=== PATIENT | male | born 1945 | race Caucasian/White ===

== ENCOUNTER 2018-12-17 12:11 | Outpatient (CLI) | payer MEDICARE, OTHER ==
--- NOTE | 2018-12-18 08:38 | DEXA Report ---
Reason: TESTICULAR HYPOFUNCTION,LOCALIZED OSTEOPOROSIS [LE Procedure Date: 12/17/2018 Accession Number: [id number] / [id number] Procedure: DEX - Dexa Spine and/or Hip CPT Code: FULL RESULT: EXAM: Dexa Spine and/or Hip DATE: 12/17/2018 1:04 PM CLINICAL HISTORY: TESTICULAR HYPOFUNCTION,LOCALIZED OSTEOPOROSIS [LE TECHNIQUE: Dual energy x-ray absorptiometry (DXA) was performed on a [employer] System. Regions measured are the AP Spine, femoral neck, and if needed forearm. COMPARISON: None. In accordance with the International Society for Clinical Densitometry (ISCD) guidelines, data from previous exams may be reanalyzed using current recommendations and techniques. This is done to allow a more accurate basis for comparison with the current study. FINDINGS: The data for the lumbar spine is as follows: BMD (g/cm/cm) T-SCORE Z-SCORE REGION L1 1.020 -1.2 -0.3 L2 1.098 -1.2 -0.3 L3 1.148 -0.8 0.1 L4 1.097 -1.2 -0.3 TOTAL 1.092 -1.1 -0.2 NOTE: All evaluable vertebrae are used for classification The data for the hip is as follows: BMD (g/cm/cm) T-SCORE Z-SCORE REGION Neck 0.804 -2.0 -0.5 TOTAL 0.807 -2.0 -1.0 NOTE: The femoral neck or total proximal femur, whichever is lowest, is used for classification. IMPRESSION: THE WHO CLASSIFICATION BASED ON THE INTERNATIONAL REFERENCE STANDARD IS OSTEOPENIA. THE FRACTURE RISK IS INCREASED. RECOMMENDATION: Patients with diagnosis of osteoporosis or osteopenia should have regular bone mineral density assessment. For those eligible for Medicare, routine testing is allowed once every 2 years. Testing frequency can be increased for patients who have rapidly progressing disease or for those who are receiving medical therapy to restore bone mass. COMMENT: World Health Organization (WHO) definitions for osteoporosis and osteopenia: NORMAL BMD: T-score at -1.0 or higher, fracture risk is low OSTEOPENIA BMD: T-score between -1.0 and -2.5, fracture risk is increased. OSTEOPOROSIS BMD: T-score at -2.5 or lower, fracture risk is high. National Osteoporosis Foundation recommends: 1. Obtain adequate dietary calcium (at least 1200 mg per day) and vitamin D (400-800 international units per day). 2. Participate, as appropriate, in regular weightbearing and muscle-strengthening exercise. 3. Avoid tobacco use and reduce alcohol and caffeine intake. 4. For more detailed information see the website at www.NOF.org.
== END 2018-12-17 12:12 | disposition home or self-care (01) ==
LOC: DI 12:11
PROVIDERS: ATTEND Internal Medicine
DX: M85.89 Other specified disorders of bone density and structure, multiple sites (principal)
CPT/HCPCS: 77080

== ENCOUNTER 2019-11-18 07:35 | Outpatient (CLI) | payer MEDICARE, OTHER ==
[2019-11-18 10:17] LABS: ALBUMIN 4.2 g/dL (3.2-5.5); ALBUMIN/GLOBULIN RATIO 1.8 (1.0-2.2); ALKALINE PHOSPHATASE 42 IU/L (42-121); ALT ALANINE AMINOTRANSFERASE 15 IU/L (10-60); AST ASPARTATE AMINOTRANSFERASE 20 IU/L (10-42); BILIRUBIN,TOTAL 0.6 mg/dL (0.2-1.0); BUN - BLOOD UREA NITROGEN 18 mg/dL (6-20); CALCIUM 9.1 mg/dL (8.5-10.3); CARBON DIOXIDE - CO2 28 mmol/L (21-32); CHLORIDE 102 mmol/L (101-111); CHOL/HDL RATIO 3.5 (<5.0); CHOLESTEROL 212 mg/dL; CREATININE 1.1 mg/dL (0.6-1.2); GFR - MDRD 65 (>89); GLUCOSE 86 mg/dL (70-100); HDL CHOLESTEROL 60 mg/dL; LDL CHOLESTEROL,CALCULATED 142 mg/dL; LDL/HDL RATIO 2.4 (<3.6); SODIUM 139 mmol/L (135-145); TOTAL PROTEIN 6.6 g/dL (6.7-8.2); VLDL CHOLESTEROL 10 mg/dL
== END 2019-11-18 07:36 | disposition home or self-care (01) ==
LOC: LAB.S 07:35
PROVIDERS: ATTEND Internal Medicine
DX: E29.1 Testicular hypofunction (principal); E78.5 Hyperlipidemia, unspecified
CPT/HCPCS: 36415; 80053; 80061; 81599; 83721; 84402; 84403

== ENCOUNTER 2020-04-19 08:15 | Outpatient (CLI) | payer MEDICARE, OTHER ==
[2020-04-19 16:09] LABS: CHOL/HDL RATIO 3.2 (<5.0); CHOLESTEROL 193 mg/dL; HDL CHOLESTEROL 60 mg/dL; LDL CHOLESTEROL,CALCULATED 117 mg/dL; VLDL CHOLESTEROL 16 mg/dL
== END 2020-04-19 08:16 | disposition home or self-care (01) ==
LOC: LAB.S 08:15
PROVIDERS: ATTEND Internal Medicine
DX: E29.1 Testicular hypofunction (principal); E78.5 Hyperlipidemia, unspecified
CPT/HCPCS: 36415; 80061; 83721; 84403

== ENCOUNTER 2021-12-19 14:08 | Outpatient (CLI) | payer MEDICARE, OTHER ==
--- NOTE | 2021-12-19 16:13 | DEXA Report ---
PROCEDURE: Dexa Spine and/or Hip INDICATIONS: OSTEOPENIA TECHNIQUE: Dual energy x-ray absorptiometry (DXA) was performed on a [employer] System. Regions measur ed are the AP Spine, femoral neck, and if needed forearm. COMPARISON: None. FINDINGS: Lumbar Spine: Bone Mineral Density 1.234 g/cm/cm,T score 0.1 Right Hip: Bone Mineral Density 0.878 g/cm/cm,T score -1.5 Right Femoral Neck: Bone Mineral Density 0.875 g/cm/cm, T score -1.5 (T score greater or equal to -1.0: NORMAL) (T score from -1.1 to -2.4: OSTEOPENIA) (T score less than or equal to -2.5 to: OSTEOPOROSIS) Impression: Osteopenia of the right hip. No osteoporosis of the lumbar spine. Patients with diagnosis of osteoporosis or osteopenia should have regular bone mineral density assess ment. For those eligible for Medicare, routine testing is allowed once every 2 years. Testing frequ ency can be increased for patients who have rapidly progressing disease or for those who are receivin g medical therapy to restore bone mass. Reviewed by: Gayle Baptiste MD on 12/19/2021 4:12 PM PST Approved by: Gayle Baptiste MD on 12/19/2021 4:12 PM PST Station ID: [id number]
== END 2021-12-19 14:09 | disposition home or self-care (01) ==
LOC: DI 14:08
PROVIDERS: ATTEND Physician Assistant
DX: M85.88 Other specified disorders of bone density and structure, other site (principal)

== ENCOUNTER 2022-03-25 12:18 | Outpatient (CLI) | payer MEDICARE, OTHER ==
[2022-03-25 18:04] LABS: CALCIUM 9.4 mg/dL (8.5-10.3); CREATININE 1.1 mg/dL (0.6-1.2); POTASSIUM 4.8 mmol/L (3.5-5.0); URIC ACID 6.3 mg/dL (2.6-7.2)
== END 2022-03-25 12:19 | disposition home or self-care (01) ==
LOC: LAB.S 12:18
PROVIDERS: ATTEND Physician Assistant
DX: M10.9 Gout, unspecified (principal)
CPT/HCPCS: 36415; 80048; 84550

== ENCOUNTER 2022-05-25 13:25 | Outpatient (CLI) | payer MEDICARE, OTHER | END 2022-05-25 13:26 | disposition home or self-care (01) | LOC: LAB.S 13:25 | PROVIDERS: ATTEND Physician Assistant | DX: M10.9 Gout, unspecified (principal) | CPT/HCPCS: 36415; 84550 ==

== ENCOUNTER 2024-05-26 12:50 | Outpatient (CLI) | payer MEDICARE ==
--- NOTE | 2024-05-26 15:01 | DEXA Report ---
PROCEDURE: Dexa Spine and/or Hip INDICATIONS: HYPOGONADISM TECHNIQUE: Dual energy x-ray absorptiometry (DXA) was performed on a [employer] System. Regions measur ed are the AP Spine, femoral neck, and if needed forearm. COMPARISON: 12/19/2021 FINDINGS: Lumbar Spine: Bone Mineral Density: 1.28 g/cm/cm,T score: 0.5. Previously 0.1 Left Femoral Neck: Bone Mineral Density: 0.79 g/cm/cm, T score: -2.1, previously -1.5. Left Hip: Bone Mineral Density: 0.88 g/cm/cm,T score: -1.5. Previously -1.5 FRAX risk factors: Family history 10 year risk of major osteoporotic fracture: 26.1% major osteoporotic fracture = hip, clinical vertebral, proximal humerus, distal forearm 10 year risk of hip fracture: 18.8% (T score greater or equal to -1.0: NORMAL) (T score from -1.1 to -2.4: OSTEOPENIA) (T score less than or equal to -2.5 to: OSTEOPOROSIS) Impression: By WHO criteria, this patient has low bone density (osteopenia). Interval decrease in the T score at the left femoral neck. Elevated FRAX fracture risk as above. Patients with diagnosis of osteoporosis or osteopenia should have regular bone mineral density assess ment. For those eligible for Medicare, routine testing is allowed once every 2 years. Testing frequ ency can be increased for patients who have rapidly progressing disease or for those who are receivin g medical therapy to restore bone mass. Reviewed by: Osito Beasley MD on 05/26/2024 2:59 PM PDT Approved by: Osito Beasley MD on 05/26/2024 2:59 PM PDT Station ID: [id number]
== END 2024-05-26 12:51 | disposition home or self-care (01) ==
LOC: DI 12:50
PROVIDERS: ATTEND Registered Nurse
DX: E29.1 Testicular hypofunction (principal); M85.89 Other specified disorders of bone density and structure, multiple sites